=== PATIENT | male | born 2000 | race African-American/Black ===

== ENCOUNTER 2021-06-09 18:18 | Emergency (ER) | payer BC ==
[~2021-06-09] VITALS: Ht 170.2 cm; Wt 65.9 kg
[2021-06-09] MEDS ORDERED: ONDA4TAB12 PO (19:57)
--- NOTE | 2021-06-09 19:57 | PHYS DOC ---
General Adult EDM: Chief Complaint: NAUSEA/VOMITING/DIARRHEA HPI: HPI: Patient is a 20-year-old male who presents with epigastric pain, nausea/vomiting/diarrhea. Patient states he was tested for Covid earlier this afternoon and was given a negative result. (ESTEPHANIA SHULTZ APRN) Review of Systems: Review of Systems: Constitutional: Denies fever or chills Eyes: Denies change in visual acuity HENT: Denies nasal congestion or sore throat Respiratory: Denies cough or shortness of breath Cardiovascular: Denies chest pain or edema GI: Denies abdominal pain. Reports nausea, vomiting, diarrhea : Denies dysuria Musculoskeletal: Denies back pain or joint pain Integument: Denies rash Neurologic: Denies headache, focal weakness or sensory changes Endocrine: Denies polyuria or polydipsia Lymphatic: Denies swollen glands Psychiatric: Denies depression or anxiety (ESTEPHANIA SHULTZ APRN) Current Medications: Current Meds: Current Medications Medications (Trade) Dose Ordered Sig/Nils Start Time Stop Time Status Last Admin Dose Admin Ondansetron HCl (Zofran Odt) 8 mg 1X ONCE 06/09/21 19:45 06/09/21 19:46 UNV (ESTEPHANIA SHULTZ APRN) Allergies: Allergies: Allergies Coded Allergies Type Severity Reaction Last Updated Verified No Known Drug Allergies 06/09/21 No (ESTEPHANIA SHULTZ APRN) Physical Exam: PE: Constitutional: Well developed, well nourished, no acute distress, non-toxic appearance. [] HENT: Normocephalic, atraumatic, bilateral external ears normal, oropharynx moist, no oral exudates, nose normal. [] Eyes: PERRLA, EOMI, conjunctiva normal, no discharge. [] Neck: Normal range of motion, no tenderness, supple, no stridor. [] Cardiovascular:Heart rate regular rhythm, no murmur [] Lungs & Thorax: Bilateral breath sounds clear to auscultation [] Abdomen: Bowel sounds normal, soft, no tenderness, no masses, no pulsatile masses. [] Skin: Warm, dry, no erythema, no rash. [] Back: No tenderness, no CVA tenderness. [] Extremities: No tenderness, no cyanosis, no clubbing, ROM intact, no edema. [] Neurologic: Alert and oriented X 3, normal motor function, normal sensory function, no focal deficits noted. [] Psychologic: Affect normal, judgement normal, mood normal. [] (ESTEPHANIA SHULTZ APRN) Current Patient Data: Vital Signs: Vital Signs Date Time Temp Pulse Resp B/P (MAP) Pulse Ox O2 Delivery O2 Flow Rate FiO2 06/09/21 18:18 86 100 Room Air (ESTEPHANIA SHULTZ APRN) EKG: EKG: [] (ESTEPHANIA SHULTZ APRN) Radiology/Procedures: Radiology/Procedures: [] (ESTEPHANIA SHULTZ APRN) Heart Score: C/O Chest Pain: No Risk Factors: Risk Factors: DM, Current or recent (<one month) smoker, HTN, HLP, family history of CAD, obesity. Risk Scores: Score 0 - 3: 2.5% MACE over next 6 weeks - Discharge Home Score 4 - 6: 20.3% MACE over next 6 weeks - Admit for Clinical Observation Score 7 - 10: 72.7% MACE over next 6 weeks - Early Invasive Strategies (ESTEPHANIA SHULTZ APRN) Course & Med Decision Making: Course & Med Decision Making Pertinent Labs and Imaging studies reviewed. (See chart for details) [] 20-year-old male presents with epigastric pain, nausea/vomiting/diarrhea. Patient was seen this afternoon and tested for Covid which was negative. Patient given 8 mg Zofran to help with nausea. And Protonix with epigastric burning pain. Patient denies lower abdominal pain. Discussed symptoms and most likely diagnosis of gastro enteritis. Explained to patient that symptoms usually resolve in 24 to 48 hours. Patient should try to drink plenty of fluids to avoid dehydration. Sending patient home with prescription for Zofran. Patient to follow-up with PCP. Ibuprofen and Tylenol for fevers or discomfort. Patient given strict return precautions. Patient states that he understands discharge plan and is appreciative. (ESTEPHANIA SHULTZ APRN) Dragon Disclaimer: Dragon Disclaimer: This electronic medical record was generated, in whole or in part, using a voice recognition dictation system. (ESTEPHANIA SHULTZ APRN) Departure Departure: Impression: Primary Impression: Nausea vomiting and diarrhea Additional Impression: GERD (gastroesophageal reflux disease) Qualified Codes: K21.9 - Gastro-esophageal reflux disease without esophagitis Disposition: HOME / SELF CARE / HOMELESS Condition: STABLE Referrals: PCP,NO (PCP) Patient Instructions: Nausea and Vomiting, [id number] Additional Instructions: You were seen in the emergency room for nausea/vomiting/diarrhea and epigastric burning. You most likely have gastroenteritis. You were given Zofran to help with your symptoms along with Protonix. Gastroenteritis symptoms typically can last 24 to 48 hours. I am sending you home with a prescription for Zofran. Please try make sure you are drinking plenty of fluids to avoid dehydration. Ibuprofen and Tylenol for fever or discomfort. Follow-up with your PCP if symptoms continue. If you have worsening symptoms or concerns. EMERGENCY DEPARTMENT GENERAL DISCHARGE INSTRUCTIONS Thank you for coming to [facility] (ED) today and trusting us with you care. We trust that you had a positivie experience in our Emergency Department. If you wish to speak to the department management, you may call the director at [phone]. YOUR FOLLOW UP INSTRUCTIONS ARE FOLLOWS: 1. Do you have a private Doctor? If you do not have a private doctor, please ask for a resource list of physicians or clinics that may be able to assist you with follow up care. 2. The Emergency Physician has interpreted your x-rays. The X-Ray specialist will also review them. If there is a change in the findings, you will be notified in 48 hours when at all possible. 3. A lab test or culture has been done, your results will be reviewed and you will be notified if you need a change in treatment. ADDITIONAL INSTRUCTIONS AND INFORMATION: 1. Your care today has been supervised by a physician who is specially trained in emergency care. Many problems require more than one evaluation for a complete diagnosis and treatment. We recommend that you schedule your follow up appointment as recommended to ensure complete treatment of you illness or injury. If you are unable to obtain follow up care and continue to have a problem, or if your condition worsens, we recommend that you return to the ED. 2. We are not able to safely determine your condition over the phone nor are we able to give sound medical advice over the phone. For these safety reasons, if you call for medical advice we will ask you to come to the ED for further evaluation. 3. If you have any questions regarding these discharge instructions please call the ED at [phone]. SAFETY INFORMATION: In the interest of safety, wellness, and injury prevention; we encourage you to wear your sealbelt, if you smoke; quite smoking, and we encourage family to use a protective helmet for bicycling and other sporting events that present an increased risk for head injury. IF YOUR SYMPTOMS WORSEN OR NEW SYMPTOMS DEVELOP, OR YOU HAVE CONCERNS ABOUT YOUR CONDITION; OR IF YOUR CONDITION WORSENS WHILE YOU ARE WAITING FOR YOUR FOLLOW UP APPOINTMENT; EITHER CONTACT YOUR PRIMARY CARE DOCTOR, THE PHYSICIAN WHOSE NAME AND NUMBER YOU WERE Jenn WRAY, OR RETURN TO THE ED IMMEDIATELY. Scripts Ondansetron (ONDANSETRON ODT) 4 Mg Tab.rapdis 4 MG PO Q8HRS for nausea for 10 Days, #30 TAB Prov: ESTEPHANIA SHULTZ APRN 06/09/21 Attending Signature Attending Signature I have participated in the care of this patient and I have reviewed and agree with all pertinent clinical information above including history, exam, and recommendations. (ANGELINA MADDEN MD) ESTEPHANIA SHULTZ APRN Jun 09, 2021 19:57 ANGELINA MADDEN MD Jun 26, 2021 00:20
[2021-06-09] MEDS ORDERED: ONDANSETRON ODT 4 MG TAB.RAPDIS PO ONE (20:15)
[2021-06-09] MEDS ORDERED: PANTOPRAZOLE 40 MG TABLET. PO ONE (20:30)
[2021-06-09] MEDS ORDERED: IBUPROFEN 600 MG TABLET. PO ONE (21:15)
[2021-06-09 21:25] VITALS: BP 106/69
== END 2021-06-09 21:25 | disposition home or self-care (01) ==
LOC: ER 18:18
DX: K21.9 Gastro-esophageal reflux disease without esophagitis (principal); R11.2 Nausea with vomiting, unspecified; R19.7 Diarrhea, unspecified
CPT/HCPCS: 99283; Q0162